=== PATIENT | male | born 1965 | race African-American/Black ===

== ENCOUNTER 2017-06-02 00:30 | Emergency (ER) | payer SELFPAY, BC ==
[2017-06-02] MEDS ORDERED: Ketorolac Tromethamine 30 MG/ML VIAL ONE (01:55)
[2017-06-02] MEDS ORDERED: Diazepam 5 MG TAB ONE (01:55)
--- NOTE | 2017-06-02 08:30 | RAD ---
2 VIEWS RIGHT HUMERUS: Date: 06/02/17 HISTORY: Slipped and fell at work with right arm pain since Friday. FINDINGS: AP and lateral views of right humerus obtained. No evidence of right humeral fractures, subluxations, or bony lesions seen. IMPRESSION: Normal AP and lateral views right humerus. POS: [facility]
--- NOTE | 2017-06-02 08:31 | RAD ---
2 VIEWS RIGHT FOREARM: Date: 06/02/17 HISTORY: Right forearm pain. Patient has recent history of fall on Friday, 3 days ago, with continued right fo rearm pain since then. FINDINGS: AP and lateral views of right forearm obtained. No evidence of right forearm fractures, subluxations, or bony lesions seen. IMPRESSION: Normal 2 views right forearm. POS: [facility]
== END 2017-06-02 02:19 | disposition home or self-care (01) ==
LOC: ERS 00:30
DX: S46.811A Strain of other muscles, fascia and tendons at shoulder and upper arm level, right arm, initial encounter (principal); I10 Essential (primary) hypertension; F17.210 Nicotine dependence, cigarettes, uncomplicated; W01.0XXA Fall on same level from slipping, tripping and stumbling without subsequent striking against object, initial encounter
CPT/HCPCS: 96372; J1885

== ENCOUNTER 2017-06-02 04:08 | Emergency (ER) | payer SELFPAY, BC ==
[2017-06-02] MEDS ORDERED: Morphine 10 MG/ML VIAL ONE (04:33)
[2017-06-02] MEDS ORDERED: Methocarbamol 1 GM/10 ML VIAL IM SCH (05:45)
== END 2017-06-02 06:16 | disposition home or self-care (01) ==
LOC: ERS 04:08
DX: S29.012A Strain of muscle and tendon of back wall of thorax, initial encounter (principal); I10 Essential (primary) hypertension; F17.210 Nicotine dependence, cigarettes, uncomplicated; Z71.6 Tobacco abuse counseling; X58.XXXA Exposure to other specified factors, initial encounter
CPT/HCPCS: 96372; 99406; J2270; J2800

== ENCOUNTER 2017-08-14 08:49 | Outpatient (CLI) | payer BC | END 2017-08-14 08:50 | disposition home or self-care (01) | LOC: DTY/OP 08:49 | PROVIDERS: ATTEND Family Medicine | DX: R73.03 Prediabetes (principal); Z71.3 Dietary counseling and surveillance | CPT/HCPCS: 97802 ==

== ENCOUNTER 2018-02-16 10:22 | Outpatient (CLI) | payer BC ==
--- NOTE | 2018-02-16 12:24 | MRI ---
MRI CERVICAL SPINE WITHOUT CONTRAST: History: Cervical radiculopathy, neck pain, left arm and shoulder pain. Associated hand numbness. Comparison: None. FINDINGS: Appropriate T1 marrow signal intensity of the cervical vertebrae. Cervical spine and intervertebral b fracisco height is maintained and there is no evidence of fracture. No significant STIR hyperintensity to suggest vertebral body edema or ligamentous injury. Visualized brain parenchyma, cervicomedullary junction, cervical cord, and the upper thoracic cord is normal in size and signal intensity. C2-3: Central midline disc bulge abuts the thecal sac. No significant central canal stenosis. Neural foramina are patent bilaterally. C3-4: There is a central disc bulge that abuts the thecal sac. Ventral subarachnoid space is maintain ed. No significant central canal stenosis. Degenerative changes in the bilateral uncal vertebral join ts and right sided facet hypertrophy result in moderate right and mild to moderate left neural forami nal narrowing. C4-5: Central disc bulge without significant central canal stenosis. Neural foramina are patent bilat erally. Mild right facet hypertrophy. C5-6: There is minimal central disc bulge without significant central canal stenosis. Neural foramina are patent. C6-7: There appears to be an extradural mass in the right sub articular zone which may represent sequ estered/extruded disc material versus a possible dural based lesion. There is mass effect and obscura tion of the traversing right C7 nerve root. There is severe right foraminal narrowing. Moderate left foraminal narrowing. In the craniocaudal dimension, this lesion measures approximately 1.5 cm. In the axial images, this l esion measures approximately 0.9 x 0.7 cm. C7-T1: No significant central canal stenosis. Neural foramina are patent. IMPRESSION: 1. Extradural mass at the C6-7 level as described above. Differential considerations include possible disc material versus a meningioma or other lesion. Post contrast imaging is recommended. Code T POS: [facility]
== END 2018-02-16 10:23 | disposition home or self-care (01) ==
LOC: TBSIIMAG 10:22
PROVIDERS: ATTEND Neurological Surgery
DX: M54.12 Radiculopathy, cervical region (principal); G95.9 Disease of spinal cord, unspecified
CPT/HCPCS: 72141

== ENCOUNTER 2018-02-23 08:06 | Observation (INO) | payer BC ==
[2018-02-20 12:23] VITALS: BMI 44.7
[2018-02-23 09:23] LABS: #Eosinphils 0.3 thou/uL (0.0-0.7); #Lymphocytes 2.6 thou/uL (1.20-3.40); #Monocytes 0.7 thou/uL (0.11-0.59); %Basophils 0.5 % (0.0-1.0); %Eosinophils 3.9 % (0.0-10.0); %Lymphocytes 34.8 % (21.0-51.0); %Monocytes 8.6 % (0.0-10.0); %Neutrophils 52.2 % (42.0-75.0); Hemoglobin 16.7 g/dL (14.0-18.0); Mean Corpuscular HGB CONC 32.1 g/dL (32.0-36.0); Mean Corpuscular Hemoglobin 28.6 pg (27.0-31.0); Mean Corpuscular Volume 89.1 fL (78.0-98.0); Mean Platelet Volume 7.6 fL (7.4-10.4); Platelet Count 286 thou/uL (130-400); RBC Distribution Width 12.3 % (11.5-14.5); Red Blood Cell (RBC) Count 5.82 mill/uL (4.70-6.10); White Blood Cell (WBC) Count 7.6 thou/uL (4.8-10.8)
[2018-02-23] MEDS ORDERED: CEFAZOLIN 2 GM/50 ML BAG ONE (09:29)
[2018-02-23 10:00] LABS: Anion Gap 14 mmol/L (10-20); BUN (Urea Nitrogen) 14 mg/dL (8.4-25.7); Calc. Creatinine Clearance 147 mL/min (70-130); Calcium 9.9 mg/dL (7.8-10.44); Carbon Dioxide 24 mmol/L (22-29); Chloride 103 mmol/L (98-107); Estimated GFR-MDRD 74; Glucose 105 mg/dL (70-105); Potassium 5.6 mmol/L (3.5-5.1); Sodium 135 mmol/L (136-145)
[2018-02-23] MEDS ORDERED: Sodium Chloride 0.9% 10 ML ONE (11:51)
[2018-02-23] MEDS ORDERED: HYDROmorphone 2 MG/ML VIAL ONE (12:00)
[2018-02-23] MEDS ORDERED: Fentanyl 100 MCG/2 ML VIAL ONE ×4 (12:00→16:54)
[2018-02-23] MEDS ORDERED: Promethazine HCl 25 MG/ML VIAL SLOW IVP PRN (13:51)
[2018-02-23] MEDS ORDERED: Ondansetron HCl/PF 4 MG/2 ML Vial IVP PRN (13:51)
[2018-02-23] MEDS ORDERED: Promethazine HCl 25 MG/ML VIAL IM PRN ×2 (13:51→14:24)
[2018-02-23] MEDS ORDERED: traMADol HCl 50 MG TAB PO PRN ×2 (14:24)
[2018-02-23] MEDS ORDERED: Promethazine 25 MG TAB PO PRN (14:24)
[2018-02-23] MEDS ORDERED: HYDROcodone/Acetaminophen 10/325 mg Tablet PO PRN ×2 (14:24)
[2018-02-23] MEDS ORDERED: tiZANidine HCl 4 MG TAB PO PRN (14:24)
[2018-02-23] MEDS ORDERED: Bisacodyl 10 MG SUPP PR PRN (14:24)
[2018-02-23] MEDS ORDERED: diphenhydrAMINE 50 MG/ML VIAL IVP PRN (14:24)
[2018-02-23] MEDS ORDERED: Morphine 4 MG/ML VIAL SLOW IVP PRN (14:24)
[2018-02-23] MEDS ORDERED: Ondansetron PF 4 MG/2 ML Vial IVP PRN (14:24)
[2018-02-23] MEDS ORDERED: Milk Of Magnesia 30 ML UDCUP PO PRN (14:24)
[2018-02-23] MEDS ORDERED: Promethazine HCl 12.5 MG SUPP PR PRN (14:24)
[2018-02-23] MEDS ORDERED: diphenhydrAMINE 25 MG CAP PO PRN (14:24)
[2018-02-23] MEDS ORDERED: Mag-Al 1200 mg/1200 mg/30 ML UDCUP PO PRN (14:24)
[2018-02-23] MEDS ORDERED: Morphine 2 MG/ML SYRINGE SLOW IVP PRN (14:30)
[2018-02-23] MEDS ORDERED: Ondansetron PF 4 MG/2 ML Vial ONE (14:37)
[2018-02-23] MEDS ORDERED: PHENYLEPHRINE-NS 100 MCG/ML 10 ML SYRINGE ONE (14:37)
[2018-02-23] MEDS ORDERED: PROPOFOL 200 MG/20 ML VIAL ONE (14:37)
[2018-02-23] MEDS ORDERED: Glycopyrrolate 0.2 MG/ML 5 ML SYRINGE ONE (14:37)
[2018-02-23] MEDS ORDERED: ePHEDrine/0.9% NaCl/PF SYRINGE 50 mg/10 ml ONE ×2 (14:37)
[2018-02-23] MEDS ORDERED: Lidocaine 1% PF 5 ML VIAL ONE (14:37)
[2018-02-23] MEDS ORDERED: Dexamethasone 20 MG/5 ML VIAL ONE (14:37)
[2018-02-23] MEDS: Sodium Chloride 0.9% 1,000 ML IV SCH (19:34)
[2018-02-23] MEDS: CEFAZOLIN 2 GM/50 ML-DEXTROSE 2 GM in Premix Bag 1 BAG IVPB SCH (21:14)
[2018-02-24] MEDS: Sodium Chloride 0.9% 1,000 ML IV SCH (03:06)
[2018-02-24] MEDS: CEFAZOLIN 2 GM/50 ML-DEXTROSE 2 GM in Premix Bag 1 BAG IVPB SCH (05:43)
[2018-02-24] MEDS ORDERED: Dexamethasone 10 MG/ML VIAL SLOW IVP SCH (07:00)
[2018-02-24 07:41] VITALS: BP 141/82; TEMP 97.5
[2018-02-24] MEDS ORDERED: Dextrose 5% in Water 1,000 ML IV PRN (08:34)
[2018-02-24] MEDS ORDERED: Dextrose 50% Abboject 50 ML SYRINGE SLOW IVP PRN (08:34)
[2018-02-24] MEDS ORDERED: Labetalol HCl 100 MG/20 ML VIAL SLOW IVP PRN (08:34)
[2018-02-24] MEDS ORDERED: Insulin Regular 300 UNITS/3 ML VIAL SC PRN ×2 (08:34)
[2018-02-24] MEDS ORDERED: Amlodipine 10 MG TAB PO SCH (09:00)
[2018-02-24] MEDS ORDERED: Atenolol 50 MG TAB PO SCH (09:00)
[2018-02-24 09:34] LABS: Anion Gap 11 mmol/L (10-20); BUN (Urea Nitrogen) 13 mg/dL (8.4-25.7); Calc. Creatinine Clearance 166 mL/min (70-130); Carbon Dioxide 29 mmol/L (22-29); Chloride 101 mmol/L (98-107); Estimated GFR-MDRD 86; Glucose 117 mg/dL (70-105); Magnesium 1.6 mg/dL (1.6-2.6); Potassium 4.5 mmol/L (3.5-5.1); Sodium 136 mmol/L (136-145)
[2018-02-24] MEDS ORDERED: metFORMIN 500 MG TAB PO SCH (17:00)
--- NOTE | 2018-02-25 05:26 | DIS ---
DATE OF ADMISSION: 02/23/2018 DATE OF DISCHARGE: 02/24/2018 HOSPITAL COURSE: The patient is a 53-year-old male, seen recently in the office for a left C7 radiculopathy and found to have significant degenerative changes from C5 to C7. The patient underwent C5-C7 ACDF and was then transitioned to the [facility] floor, where his pain was well controlled with p.o. medications, and he was up ambulating without difficulty in the department. SANDRA drain was placed intraoperatively, it only had 10 mL of drainage overnight. This was removed on postoperative day #1. The patient's only complaint was some mild dysphagia, but he was able to tolerate p.o. fluids as well as a soft diet. He was treated with 10 mg of IV Decadron x1 for this. On visiting the patient at bedside this morning, he is awake, alert, in no acute distress. He has free active range of motion of all extremities. No focal motor weakness or reflex asymmetry. His dressing is dry and his incision is soft. He has slightly worse voice. He has no respiratory difficulty. We will plan to dismiss the patient to home. I have discussed home care precautions and I have provided the patient with scripts for [place] and Zanaflex. The patient will follow up with us in 2 weeks. Please reach us Neurosurgery for additional questions or concerns. Job ID: [id number]
--- NOTE | 2018-02-25 21:44 | EKG ---
Test Reason : PREOP Blood Pressure : / mmHG Vent. Rate : 064 BPM Atrial Rate : 064 BPM P-R Int : 140 ms QRS Dur : 084 ms QT Int : 378 ms P-R-T Axes : 066 022 -13 degrees QTc Int : 389 ms Normal sinus rhythm Cannot rule out Inferior infarct (cited on or before 14-NOV-2013) Abnormal ECG When compared with ECG of 14-NOV-2013 06:01, Vent. rate has decreased BY 36 BPM QT has shortened Confirmed by Zohra LUGO ([id number]) on 02/25/2018 9:44:25 PM Referred By: KALEB Confirmed By:Zohra LUGO
--- NOTE | 2018-02-26 15:14 | OP ---
DATE OF PROCEDURE: 02/23/2018 CITY MAINTENANCE MANAGER: RAFY Peña PROCEDURES PERFORMED: 1. Anterior cervical discectomy C6-C7, interbody arthrodesis. 2. Bio mechanical device, local morselized autograft. 3. Demineralized bone matrix, anterior titanium instrumentation C6-C7. DESCRIPTION OF PROCEDURE: The patient was brought to the operating room and intubated. He was positioned supine and on gel-filled donut. In the right pre-cervical area, dissecting the sternocleidomastoid mastoid muscle, we identified the anterior cervical spine and the level was confirmed by x-ray. The surgery was extremely difficult because of his very large body habitus. We placed distraction prosthesis at C6-C7 and using the operative microscope and microdissection technique, found the expected huge disc herniation which had migrated posteriorly up behind C6. This was removed in multiple fragments including one huge fragment. I felt that a complete decompression had been secured even though we could not directly visualize the disk behind the C6 vertebral body. Bony implants were decorticated for further arthrodesis and biomechanical PEEK device was brought into the field filled with demineralized bone matrix and local morselized autograft and tapped in place and secured at C6-C7. Anterior plate was brought on to the field and secured to C6 and C7 using two 14 mm screws at each level. The wound was extensively irrigated. MAC hemostasis was secured. The wound was closed in anatomic layers over a drain. Job ID: [id number]
== END 2018-02-24 10:45 | disposition home or self-care (01) ==
LOC: SDC 08:06 → SURG A 11:39
PROVIDERS: ADMIT Neurological Surgery; ATTEND Neurological Surgery
PROC: 0RG10A0 Fusion of Cervical Vertebral Joint with Interbody Fusion Device, Anterior Approach, Anterior Column, Open Approach (ICD-10-PCS; principal; 2018-02-24)
DX: M54.12 Radiculopathy, cervical region (principal); I10 Essential (primary) hypertension; R73.03 Prediabetes; Z87.891 Personal history of nicotine dependence; Z89.022 Acquired absence of left finger(s); Z79.84 Long term (current) use of oral hypoglycemic drugs; Z79.899 Other long term (current) drug therapy
CPT/HCPCS: 36415; 76001; 80048; 83735; 85025; 93005; 93010; 96365; 96366; 96374; 96375; 96376; C1713; C1776; G0378; J1100; J1170; J2001; J2270; J2405; J2704; J3010; J3490

== ENCOUNTER 2018-03-10 15:31 | Outpatient (CLI) | payer BC ==
--- NOTE | 2018-03-10 16:52 | RAD ---
FIVE VIEWS OF THE CERVICAL SPINE: 02/21/18 INDICATION: History of surgery. COMPARISON: Prior MR of the cervical spine dated 02/16/18. FINDINGS: Since the comparison examination, there has been interval performance of an ACDF spanning C6-7. There is an interbody bone graft at C6-7. Spinal alignment appears within normal limits. Lateral masses ar e symmetric. Lung apices are clear. There is some mild soft tissue swelling involving the prevertebra l soft tissues which may be postsurgical in nature. IMPRESSION: Postoperative changes of the cervical spine. Soft tissue swelling of the prevertebral soft tissues of the cervical spine may be related to patient's recent surgery. POS: [facility]
== END 2018-03-10 15:32 | disposition home or self-care (01) ==
LOC: TBSIIMAG 15:31
PROVIDERS: ATTEND Neurological Surgery
DX: M54.2 Cervicalgia (principal); M79.89 Other specified soft tissue disorders; Z98.890 Other specified postprocedural states
CPT/HCPCS: 72040

== ENCOUNTER 2018-04-21 15:12 | Outpatient (CLI) | payer BC ==
--- NOTE | 2018-04-21 17:51 | RAD ---
FIVE VIEWS CERVICAL SPINE: 04/21/18 HISTORY: Cervical radiculopathy. History of prior cervical spine surgery. COMPARISON: 03/10/18. FINDINGS: C1 to the cervicothoracic junction is seen on the lateral and swimmers views of the cervical spine. H owever, the C6 and C7 vertebral bodies as well as cervicothoracic junction are otherwise obscured due to overlying structures limiting osseous detail. There is no evidence of a subluxation and no obviou s displaced fracture is seen. Anterior plate and screws again transfix the C6 and C7 vertebral bodies with intradiscal prostheses present. Alignment of the hardware is similar to prior exam. Prevertebra l soft tissue swelling has mildly improved when compared to the prior exam. No other interval change. IMPRESSION: 1. Limited evaluation of the lower cervical spine due to overlying structures. Postsurgical shelton ges related to anterior cervical fusion at the C6-7 level is again present. No obvious hardware compl ication is able to be delineated. 2. Mild improvement in prevertebral soft tissue swelling. POS: [facility]
== END 2018-04-21 15:13 | disposition home or self-care (01) ==
LOC: TBSIIMAG 15:12
PROVIDERS: ATTEND Neurological Surgery
DX: M54.12 Radiculopathy, cervical region (principal); M79.89 Other specified soft tissue disorders; Z98.1 Arthrodesis status
CPT/HCPCS: 72040

== ENCOUNTER 2020-02-25 08:07 | Outpatient (CLI) | payer OTHER ==
--- NOTE | 2020-02-25 09:28 | RAD ---
CERVICAL SPINE 4 VIEWS: DATE: 02/25/2020. COMPARISON: 04/21/2018. HISTORY: Cervical radiculopathy. FINDINGS: Open mouth odontoid view, frontal view, lateral view, and swimmer's lateral view provided. The swimmer's lateral view demonstrates normal alignment of the vertebral bodies at the cervicothorac ic junction. The open mouth odontoid view appears unremarkable. The frontal exam demonstrates stable anterior diskectomy and fusion hardware at the C6-7 level. The lateral exam demonstrates mild disk space narrowing with prominent anterior osteophyte formation at C 5-6. No prevertebral soft tissue swelling. No acute osseous abnormality is evident. Body habitus l imits detailed assessment at the C6-7 and C7-T1 levels. IMPRESSION: Postoperative changes as detailed above. POS: [facility]
--- NOTE | 2020-02-25 10:12 | MRI ---
MR the lumbar spine without contrast INDICATION: Low back pain with right-sided back pain and bilateral leg numbness COMPARISON: None. TECHNIQUE: Multiplanar multisequence MR images were obtained of lumbar spine without IV contrast. FINDINGS: Bone marrow: Bone marrow signal intensity appears within normal limits. Distal spinal cord and conus: Normal. The conus seen to terminate at L1. Visualized retroperitoneum and paraspinal soft tissues: Normal. Vertebral levels: There is multilevel congenital narrowing of the lumbar spinal canal. L5-S1: There is loss of the normal disc signal and height at L5-S1. There is a broad-based disc bulge , asymmetric to the left. There is lateral facet osteoarthrosis. Constellation of findings induces mild right and [id number] left neural foraminal narrowing.. L4-5: There is a broad-based disc bulge with mild facet joint degenerative change inducing mild bilat eral neural foramina, left greater than right. L3-4: There is a broad-based disc bulge with facet hypertrophy inducing mild bilateral neural foramin al narrowing. L2-3: There is a broad-based bulge with facet hypertrophy inducing mild neural foraminal narrowing. L1-L2: No appreciable central canal or neuroforaminal narrowing. T12-L1: No appreciable central canal or neuroforaminal narrowing. IMPRESSION: 1. 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 2. Moderate lumbar spondylosis with multilevel neural foraminal narrowing.
--- NOTE | 2020-02-25 10:35 | MRI ---
MRI CERVICAL SPINE WITHOUT CONTRAST: Date: 02/25/2020 INDICATION: Cervical radiculopathy. Comparison made to MRI of cervical spine of 02/16/2018. FINDINGS: Postoperative changes are now noted at C6-7 since the prior study. Anterior plate and screws are pres ent, which do produce artifact. The mass density posterior to the C6 vertebra noted on the prior stud y is no longer present. Posterior alignment is preserved. No evidence of significant disc bulge or disc protrusion. Spinal canal is overall somewhat small, pro bable due to short pedicle distance. The cervical cord signal is normal. No evidence of central canal or foraminal stenosis. IMPRESSION: Postop changes now noted at C6-7. There is no significant disc bulge or disc protrusion at any of the cervical levels and no significant central canal or foraminal stenosis identified. POS: [facility]
== END 2020-02-25 08:08 | disposition home or self-care (01) ==
LOC: TBSIIMAG 08:07
PROVIDERS: ATTEND Neurological Surgery
DX: M54.12 Radiculopathy, cervical region (principal); M54.5 Low back pain; M47.816 Spondylosis without myelopathy or radiculopathy, lumbar region; M48.061 Spinal stenosis, lumbar region without neurogenic claudication; Z98.890 Other specified postprocedural states
CPT/HCPCS: 72040; 72141; 72148

== ENCOUNTER 2020-05-15 07:15 | Day surgery (SDC) | payer OTHER ==
[2020-05-12 12:25] VITALS: BMI 50.8
--- NOTE | 2020-05-15 10:22 | OP ---
DATE OF PROCEDURE: 05/15/2020 PROCEDURE PERFORMED: Colonoscopy with snare polypectomy, aborted due to poor prep. INDICATION FOR PROCEDURE: Increased risk colon cancer screening due to family history of colon cancer in his father at age 70 and above. DESCRIPTION OF PROCEDURE: Informed consent was obtained from the patient. He was sedated with total intravenous anesthesia. The rectal exam was performed and was normal. The colonoscope was advanced to the ascending colon, where solid stool was encountered and vegetable matter prevented adequate cleaning and suctioning of the colon to achieve appropriate views of the colonic mucosa. I removed a 4-mm polyp from the sigmoid colon by cold snare polypectomy. The remainder of the colonic mucosa, which could be visualized was normal, however, again the prep was poor, particularly in the cecum and right colon and areas of the transverse colon. Retroflexed views in the rectum were unremarkable. IMPRESSION: 1. Aborted colonoscopy due to poor prep. The mucosa visualized was unremarkable overall. 2. A 4-mm polyp was removed by cold snare polypectomy from the sigmoid colon. RECOMMENDATIONS: 1. Await histopathology. 2. Reschedule colonoscopy with a better prep. Job ID: [id number]
== END 2020-05-15 10:33 | disposition home or self-care (01) ==
LOC: SDC 07:15
PROVIDERS: ATTEND Internal Medicine Gastroenterology
PROC: 0DBN8ZZ Excision of Sigmoid Colon, Via Natural or Artificial Opening Endoscopic (ICD-10-PCS; principal; 2020-05-15)
DX: Z12.11 Encounter for screening for malignant neoplasm of colon (principal); K63.5 Polyp of colon; I10 Essential (primary) hypertension; R73.03 Prediabetes; Z79.84 Long term (current) use of oral hypoglycemic drugs; Z79.899 Other long term (current) drug therapy; Z80.0 Family history of malignant neoplasm of digestive organs
CPT/HCPCS: 88305

== ENCOUNTER 2020-06-08 09:16 | Outpatient (CLI) | payer OTHER ==
[2020-05-12 22:12] LABS: SARS-CoV-2 PCR by NAA Not Detected (NotDetected)
== END 2020-06-08 09:17 | disposition home or self-care (01) ==
LOC: LABBT 09:16
PROVIDERS: ATTEND Internal Medicine Gastroenterology
DX: G56.31 Lesion of radial nerve, right upper limb (principal); Z20.822 Contact with and (suspected) exposure to COVID-19
CPT/HCPCS: 87635; U0003; U0005

== ENCOUNTER 2020-06-09 10:10 | Outpatient (CLI) | payer OTHER ==
[2020-06-09 23:52] LABS: SARS-CoV-2 PCR by NAA Not Detected (NotDetected)
== END 2020-06-09 10:11 | disposition home or self-care (01) ==
LOC: LABBT 10:10
PROVIDERS: ATTEND Internal Medicine Gastroenterology
DX: G56.01 Carpal tunnel syndrome, right upper limb (principal); Z20.822 Contact with and (suspected) exposure to COVID-19
CPT/HCPCS: 87635; U0003; U0005

== ENCOUNTER 2020-06-13 06:06 | Day surgery (SDC) | payer OTHER ==
[2020-06-09 17:04] VITALS: BMI 50.8
[2020-06-13] MEDS ORDERED: Midazolam HCl 2 mg/2 ml Vial ONE (07:53)
[2020-06-13] MEDS ORDERED: Ketamine 50 MG/ML (10ML VIAL) ONE (07:54)
[2020-06-13] MEDS ORDERED: PROPOFOL 200 MG/20 ML VIAL ONE (08:36)
== END 2020-06-13 10:11 | disposition home or self-care (01) ==
LOC: SDC 06:06
PROVIDERS: ATTEND Internal Medicine Gastroenterology
PROC: 0DJD8ZZ Inspection of Lower Intestinal Tract, Via Natural or Artificial Opening Endoscopic (ICD-10-PCS; principal; 2020-06-13)
DX: Z12.11 Encounter for screening for malignant neoplasm of colon (principal); I10 Essential (primary) hypertension; R73.03 Prediabetes; E66.9 Obesity, unspecified; Z68.43 Body mass index [BMI] 50.0-59.9, adult; Z80.0 Family history of malignant neoplasm of digestive organs; Z79.82 Long term (current) use of aspirin; Z79.84 Long term (current) use of oral hypoglycemic drugs; Z79.899 Other long term (current) drug therapy
CPT/HCPCS: J2250; J2704

== ENCOUNTER 2020-06-16 06:34 | Day surgery (SDC) | payer OTHER ==
[2020-06-15 09:39] VITALS: BMI 50.8
[2020-06-16 07:38] LABS: #Eosinphils 0.4 thou/uL (0.0-0.7); #Monocytes 0.6 thou/uL (0.11-0.59); #Neutrophils 3.1 thou/uL (1.40-6.50); %Basophils 0.6 % (0.0-1.0); %Eosinophils 5.9 % (0.0-10.0); %Lymphocytes 32.9 % (21.0-51.0); %Monocytes 9.3 % (0.0-10.0); %Neutrophils 51.3 % (42.0-75.0); Hemoglobin 14.6 g/dL (14.0-18.0); Mean Corpuscular HGB CONC 31.3 g/dL (32.0-36.0); Mean Corpuscular Hemoglobin 28.4 pg (27.0-31.0); Mean Corpuscular Volume 90.8 fL (78.0-98.0); Mean Platelet Volume 7.5 fL (7.4-10.4); Platelet Count 232 thou/uL (130-400); RBC Distribution Width 13.3 % (11.5-14.5); Red Blood Cell (RBC) Count 5.15 mill/uL (4.70-6.10)
[2020-06-16] MEDS ORDERED: Betamet Acet/Betamet Na Ph 30 MG/5 ML VIAL ONE (08:08)
[2020-06-16] MEDS ORDERED: Sodium Chloride 0.9% 10 ML ONE (08:08)
[2020-06-16] MEDS ORDERED: Bacitracin Zinc Ointment 30 gm TUBE ONE (08:08)
[2020-06-16] MEDS ORDERED: Bupivacaine PF 0.5% 30 ML VIAL ONE (08:08)
[2020-06-16] MEDS ORDERED: Fentanyl 100 MCG/2 ML VIAL ONE (08:24)
[2020-06-16] MEDS ORDERED: PROPOFOL 200 MG/20 ML VIAL ONE (08:32)
[2020-06-16] MEDS ORDERED: Lidocaine 1% PF 5 ML VIAL ONE (08:32)
[2020-06-16] MEDS ORDERED: Dexamethasone 20 MG/5 ML VIAL ONE (08:32)
[2020-06-16] MEDS ORDERED: Ketorolac Tromethamine 30 MG/ML VIAL ONE ×2 (08:32→11:08)
[2020-06-16] MEDS ORDERED: Ondansetron PF 4 MG/2 ML Vial ONE (08:32)
== END 2020-06-16 12:00 | disposition home or self-care (01) ==
LOC: SDC 06:34
PROVIDERS: ATTEND Orthopaedic Surgery Hand Surgery
PROC: 01N50ZZ Release Median Nerve, Open Approach (ICD-10-PCS; principal; 2020-06-16)
DX: G56.01 Carpal tunnel syndrome, right upper limb (principal); I10 Essential (primary) hypertension; R73.03 Prediabetes; G58.7 Mononeuritis multiplex; F17.290 Nicotine dependence, other tobacco product, uncomplicated; Z79.82 Long term (current) use of aspirin; Z79.84 Long term (current) use of oral hypoglycemic drugs; Z79.899 Other long term (current) drug therapy; Z86.010 Personal history of colon polyps
CPT/HCPCS: 36415; 85025; 93005; 93010; J0690; J0702; J1100; J1885; J2405; J2704; J3010; J3490; S0020

== ENCOUNTER 2020-07-23 19:00 | Outpatient (CLI) | payer OTHER | END 2020-07-23 19:01 | disposition home or self-care (01) | LOC: SLEEPLAB 19:00 | PROVIDERS: ATTEND Family Medicine | DX: G47.33 Obstructive sleep apnea (adult) (pediatric) (principal); R53.83 Other fatigue; R06.83 Snoring; G47.10 Hypersomnia, unspecified; I10 Essential (primary) hypertension; G47.00 Insomnia, unspecified | CPT/HCPCS: 95811 ==